=== PATIENT | male | born 1995 | race Caucasian/White ===

== ENCOUNTER 2024-10-07 08:38 | Emergency (ER) | payer SELFPAY ==
[2024-10-07 08:58] VITALS: BP 121/88; PULSE 90; RESP 16; TEMP 37.4; O2SAT 97
--- NOTE | 2024-10-07 09:01 | XR_ITS ---
Examination: Upright PA chest single view TECHNIQUE: Upright PA chest single view Exam date and time: October 07, 2024 0925 hours INDICATIONS: Coughing shortness of breath beginning 4 days ago. FINDINGS: Normal heart size No pneumonia or pulmonary edema Intact osseous structures IMPRESSION: No active disease
--- NOTE | 2024-10-07 09:03 | EDNOTE_ITS ---
Upper Respiratory Inf. RME/HPI General Chief Complaint: Flu Like Symptoms Stated Complaint: congestion,diarrhea, sob x4 days Time Seen by Provider: 10/07/24 09:00 Source: patient, RN notes reviewed and old records reviewed Arrival date/time: 10/07/24 08:38 Mode of arrival: ambulatory Limitations: no limitations RME / HPI RME / HPI Narrative: 29yom presents to the ED for 4-day history of flu-like symptoms. Multiple family members currently have similar symptoms, son recently treated for the flu. Patient c/o subjective fever, chills, body aches, headache and i ntermittent n/v/d. He reports congestion, cough and mild shortness of breath with coughing spells. No chest pain, abdominal pain, dizziness or syncope reported. Patient has taken DayQuil, NyQuil and ibuprofen with mild relief. Related Data Previous Rx's ?Medication ?Instructions ?Recorded ondansetron 4 mg disintegrating 4 mg PO Q8H PRN nausea and 08/15/20 tablet vomiting #20 tabs azithromycin 250 mg tablet See Rx Instructions PO .COMPLEX #6 01/05/21 (Zithromax) tabs acetaminophen 500 mg tablet 1,000 mg (2 x 500 mg) PO Q6H PRN 10/07/24 (Tylenol Extra Strength) fever or pain #30 tabs albuterol sulfate 90 mcg/actuation 1 inh inhalation Q4H PRN shortness 10/07/24 aerosol inhaler of breath or wheezing #18 grams benzonatate 100 mg capsule 100 mg PO Q6H PRN cough #30 caps 10/07/24 dextromethorphan-guaifenesin ER 60 1 tab PO Q12H PRN congestion/cough 10/07/24 mg-1,200 mg tab,extend #12 tabs release,12hr (Mucinex DM) ondansetron 4 mg disintegrating 4 mg PO Q6H PRN nausea and 10/07/24 tablet vomiting #10 tabs Allergies Allergy/AdvReac Type Severity Reaction Status Date / Time No Known Allergies Allergy Verified 10/07/24 08:40 Review of Systems Review of Systems Systems Reviewed: All systems reviewed, normal except as documented Constitutional Constitutional: Reports chills, Reports fever(s) and Reports headache(s) ENT Ears, Nose, Mouth, and Throat: Denies dizziness, Reports headache(s) and Reports nasal congestion Cardiovascular Cardiovascular: Denies chest pain and Reports dyspnea Respiratory Respiratory: Reports chest congestion, Reports cough and Reports dyspnea Gastrointestinal Gastrointestinal: Denies abdominal pain, Reports loose stools, Reports nausea and Reports vomiting Musculoskeletal Musculoskeletal: Reports myalgias Neurologic Neurologic: Denies dizziness and Reports headache(s) Past Medical History Surgical History OTHER SURGICAL HX: Right knee arthroscopy Social History SMOKING STATUS: Current every day smoker SUBSTANCE USE: marijuana ALCOHOL: Former Past Medical History Comments PMH COMMENT: ICH ED Exam General Limitations: Present no limitations General appearance: Present alert and in no apparent distress Head Head exam: Present atraumatic and normocephalic Eye Eye exam: Present normal appearance, PERRL and EOMI ENT ENT exam: Present normal exam, normal oropharynx, mucous membranes moist and TM's normal bilaterally Neck Neck exam: Present normal inspection and full ROM Chest Chest inspection: Present normal inspection and symmetric chest wall rise Respiratory Respiratory exam: Present normal lung sounds bilaterally and other (No wheezing, rales or rhonchi); Absent respiratory distress Cardiovascular Cardiovascular exam: Present regular rate and normal rhythm Extremities Exam Extremities exam: Present normal inspection and full ROM Neurological Exam Neurological exam: Present alert and oriented X3 Psychiatric Psychiatric exam: Present normal affect and normal mood Skin Skin exam: Present warm, dry, intact and normal color Course Quality Measures none Orders Category Date Time Status Bedside COVID-19 Antigen Test NOW Care 10/07/24 09:01 Completed Bedside Influenza A&B Antigen Test NOW Care 10/07/24 09:01 Completed CXR [XR chest 1V] Stat Exams 10/07/24 09:01 Completed Acetaminophen Tab [Tylenol ES Tab] Med 10/07/24 09:01 Discontinued 1,000 mg PO X1 ONE Ondansetron Odt [Zofran Odt] Med 10/07/24 09:01 Discontinued 4 mg PO X1 ONE Vital Signs Vital signs: Vital Signs Temperature 99.3 F 10/07/24 08:58 Pulse Rate 90 10/07/24 08:58 Respiratory Rate 16 10/07/24 08:58 Blood Pressure 121/88 H 10/07/24 08:58 Pulse Oximetry (%) 97 10/07/24 08:58 Oxygen Delivery Method Room Air 10/07/24 08:58 Upper Respiratory Infection MDM Narrative MDM Narrative:: 29yom presents to the ED for 4-day history of flu-like symptoms. Multiple family members currently have similar symptoms, son recently treated for the flu. Patient c/o subjective fever, chills, body aches, headache and intermittent n/v/d. He reports congestion, cough and mild shortness of breath with coughing spells. No chest pain, abdominal pain, dizziness or syncope reported. Patient has taken DayQuil, NyQuil and ibuprofen with mild relief. Patient is nontoxic-appearing, vitals are stable. No evidence of respiratory distress or hypoxia. Suspect viral etiology of symptoms. Encourage rest, fluid s, symptomatic treatment, fever management prn. Stable for discharge, RTED precautions given. Patient data External records reviewed:: [facility] previous records (03/17/2024 ED visit and transfer for intracranial bleed) Clinical information provided by:: patient Social determinants that could affect healthcare access:: other (specify) (Poor access to healthcare) Patient has the following chronic illnesses:: none How is presenting disease/condition affected by chronic disease/condition?: no chronic disease Evaluation data The following diagnostics were reviewed and interpreted by me:: lab results and radiology exam(s) Lab and/or radiology exams considered but not ordered:: none Interpretation Summary: CXR: no pneumonia per my read Covid/flu: negative Medications / Prescriptions Medications or Prescriptions considered but not ordered:: no antibiotics recommended at this time Medication administrations:: Medication Administration History Discontinued Medications Acetaminophen (Acetaminophen 500 Mg Tablet) 1,000 mg PO X1 ONE Stop: 10/07/24 09:02 Last Admin: 10/07/24 09:18 Dose: 1,000 mg Documented By: ED Ondansetron HCl (Ondansetron Odt 4 Mg Tabrap) 4 mg PO X1 ONE; Protocol Stop: 10/07/24 09:02 Last Admin: 10/07/24 09:18 Dose: 4 mg Documented By: ED above medications administered in ED Consultations Consultation(s) initiated? (list below): No Diagnosis Upper Respiratory Differential Diagnosis: other (URI, COVID, flu, viral illness, bronchitis, pneumonia) Most likely diagnosis given after review of the tests above:: URI, viral syndrome Admission Indicated Admission indicated?: not indicated Admission Request Was there a request for admission?: No Disposition Plan Disposition Plan: Discharge Discharge Attestation Discharge Attestation: The patient and all family members were given an opportunity to ask questions and understood the discharge instructions. Discharge instructions specifically effects, indications for sooner follow up or return to the emergency department, and the expected course of current diagnosis. Patient condition: Stable Discharge Plan Plan Patient Disposition: HOME (Self Care) Patient condition on transfer: Stable Prescriptions/Referrals Prescriptions/Med Rec: New dextromethorphan-guaifenesin [Mucinex DM] 60-1,200 mg tablet extended release 12 hr 1 tab PO Q12H PRN (Reason: congestion/cough) Qty: 12 0RF albuterol sulfate 90 mcg/actuation HFA aerosol inhaler 1 inh inhalation Q4H PRN (Reason: shortness of breath or wheezing) Qty: 18 0RF benzonatate 100 mg capsule 100 mg PO Q6H PRN (Reason: cough) Qty: 30 0RF acetaminophen [Tylenol Extra Strength] 500 mg tablet 1,000 mg PO Q6H PRN (Reason: fever or pain) Qty: 30 0RF ondansetron 4 mg tablet,disintegrating 4 mg PO Q6H PRN (Reason: nausea and vomiting) Qty: 10 0RF No Action ondansetron 4 mg tablet,disintegrating 4 mg PO Q8H PRN (Reason: nausea and vomiting) Qty: 20 0RF azithromycin [Zithromax] 250 mg tablet See Rx Instructions .ROUTE .COMPLEX Qty: 6 0RF Rx Instructions: take 500 mg today (day 1), then 250 mg for 4 days (days 2-5) Referrals: No Primary/Family,Physician [Primary Care Provider] - In 1 week Problem List Clinical Impression: Upper respiratory infection, Viral infection Patient/Caregiver Discharge Instructions Education Materials: ED URI, Viral, No Abx (Adult) Additional Instructions: Make sure to get plenty of rest, drink plenty of fluids. Typical virus take 7 to 10 days to run its course. Print Language: Azeri Stand Alone Forms: Amparo Award Info., Work/School Release, Patient Portal Info Letter PA/INSTRUCTOR DANCING Supervising Physician PA/INSTRUCTOR DANCING Supervising Physician: Cyndee
[2024-10-07] MEDS: ONDANSETRON ODT 4 MG TABRAP PO (09:18)
[2024-10-07] MEDS: ACETAMINOPHEN 500 MG TABLET 1000 MG PO (09:18)
== END 2024-10-07 10:41 | disposition home or self-care (01) ==
PROVIDERS: Emergency Provider Emergency Medicine
DX: J06.9 Acute upper respiratory infection, unspecified (principal); F17.210 Nicotine dependence, cigarettes, uncomplicated
CPT/HCPCS: 71045; 87400; 87811; 99283; Q0162; A9270

== ENCOUNTER 2025-01-20 22:49 | Emergency (ER) | payer BC, SELFPAY ==
[2025-01-20 22:49] VITALS: BMI 20.3
--- NOTE | 2025-01-20 23:07 | XR_ITS ---
EXAMINATION: Ankle, left 3 views . Technique: Ankle AP, oblique, lateral 3 views Date and time of exam: January 20, 2025 at 1110 hours INDICATIONS: Patient fell today with injury to the ankle, ankle pain. FINDINGS: Acute fracture distal tibia through the medial malleolus, intra-articular, up to 4 mm separation at the fracture site No ankle dislocation Fibula are intact IMPRESSION: Fracture through the distal medial tibia as above
[2025-01-20 23:23] VITALS: BP 114/72; PULSE 73; RESP 20; TEMP 36.6; O2SAT 95
--- NOTE | 2025-01-21 04:08 | PD.EDANKLE ---
Lower Extremity Injury RME/HPI General Chief Complaint: Ankle/Foot Injury Stated Complaint: LEFT ANKLE INJURY Time Seen by Provider: 01/20/25 23:32 Arrival date/time: 01/20/25 22:49 29M with no significant PMH presents to ED with L ankle pain after trip and fall. Patient denies hitting his head. Limitations: no limitations Related Data Previous Rx's ?Medication ?Instructions ?Recorded ondansetron 4 mg disintegrating 4 mg PO Q8H PRN nausea and 08/15/20 tablet vomiting #20 tabs azithromycin 250 mg tablet See Rx Instructions PO .COMPLEX #6 01/05/21 (Zithromax) tabs acetaminophen 500 mg tablet 1,000 mg (2 x 500 mg) PO Q6H PRN 10/07/24 (Tylenol Extra Strength) fever or pain #30 tabs albuterol sulfate 90 mcg/actuation 1 inh inhalation Q4H PRN shortness 10/07/24 aerosol inhaler of breath or wheezing #18 grams benzonatate 100 mg capsule 100 mg PO Q6H PRN cough #30 caps 10/07/24 dextromethorphan-guaifenesin ER 60 1 tab PO Q12H PRN congestion/cough 10/07/24 mg-1,200 mg tab,extend #12 tabs release,12hr (Mucinex DM) ondansetron 4 mg disintegrating 4 mg PO Q6H PRN nausea and 10/07/24 tablet vomiting #10 tabs Allergies Allergy/AdvReac Type Severity Reaction Status Date / Time No Known Allergies Allergy Verified 10/07/24 08:40 Review of Systems Review of Systems Systems Reviewed: All systems reviewed, normal except as documented Constitutional Constitutional: Reports system reviewed and no additional complaints, except as documented, Denies fever(s) and Denies headache(s) ENT Ears, Nose, Mouth, and Throat: Denies disequilibrium and Denies headache(s) Cardiovascular Cardiovascular: Reports system reviewed and no additional complaints, except as documented, Denies chest pain and Denies dyspnea Respiratory Respiratory: Reports system reviewed and no additional complaints, except as documented, Denies cough and Denies dyspnea Gastrointestinal Gastrointestinal: Reports system reviewed and no additional complaints, except as documented, Denies abdominal pain, Denies nausea and Denies vomiting Musculoskeletal Musculoskeletal: Reports as per HPI, Reports arthralgias and Reports joint swelling Neurologic Neurologic: Reports system reviewed and no additional complaints, except as documented, Denies confusion, Denies disequilibrium and Denies headache(s) Psychiatric Psychiatric: Denies confusion Past Medical History Past Medical History CARDIAC: Negative Congestive Heart Failure RESPIRATORY: Negative Chronic Obstructive Pulmonary Disease (COPD) GENITOURINARY: Negative Renal Disease ENDOCRINE: Negative Diabetes Mellitus Type 1 or Diabetes Mellitus Type 2 Surgical History SURGICAL: Positive Joint Replacement Social History SMOKING STATUS: Current every day smoker SUBSTANCE USE: marijuana ED Exam General Limitations: Present no limitations General appearance: Present alert and in no apparent distress Head Head exam: Present atraumatic Eye Eye exam: Present normal appearance, PERRL and EOMI ENT ENT exam: Present normal exam, normal oropharynx and mucous membranes moist Neck Neck exam: Present normal inspection, full ROM and trachea midline Chest Chest inspection: Present normal inspection and symmetric chest wall rise Respiratory Respiratory exam: Present normal lung sounds bilaterally Cardiovascular Cardiovascular exam: Present regular rate, normal rhythm and normal heart sounds Abdominal Exam Abdominal exam: Present soft and normal bowel sounds Expanded Lower Extremity Exam Ankle exam: Present tenderness (L) and swelling Back Exam Back exam: Present normal inspection and full ROM Neurological Exam Neurological exam: Present alert, oriented X3 and CN II-XII intact Psychiatric Psychiatric exam: Present normal affect and normal mood Skin Skin exam: Present warm, dry, intact and normal color Course Quality Measures none Orders Category Date Time Status Crutches .NOW Care 01/21/25 00:02 Active Splint / Immobilizer STAT Care 01/21/25 00:02 Active XR ankle comp LT min 3V Stat Exams 01/20/25 23:07 Completed Vital Signs Vital signs: Vital Signs Temperature 97.9 F 01/20/25 23:23 Pulse Rate 73 01/20/25 23:23 Respiratory Rate 20 01/20/25 23:23 Blood Pressure 114/72 01/20/25 23:23 Pulse Oximetry (%) 95 01/20/25 23:23 Oxygen Delivery Method Room Air 01/20/25 23:23 O2 at 95% on RA and WNLs Extremity Injury, Lower MDM Narrative MDM Narrative:: 29M with no significant PMH presents to ED with L ankle pain after trip and fall. Patient denies hitting his head. Physical exam reveals L ankle tenderness and swelling. Mildly reduced ROM. Patient is afebrile, calm, and alert. XR reveals L ankle fx. Given splint, crutches, and ortho referral w/ Dr. Garcia. Patient data External records reviewed:: [facility] previous records Clinical information provided by:: patient Social determinants that could affect healthcare access:: none Patient has the following chronic illnesses:: none How is presenting disease/condition affected by chronic disease/condition?: no chronic disease Evaluation data The following diagnostics were reviewed and interpreted by me:: radiology exam(s) Lab and/or radiology exams considered but not ordered:: ordered Interpretation Summary: above Medications / Prescriptions Medications or Prescriptions considered but not ordered:: not ordered Medication administrations:: n/a Consultations Consultation(s) initiated? (list below): No Diagnosis Extremity Injury, Lower Differential Diagnosis: ankle sprain and strain, acute internal derangement of knee, fracture of femur, fracture of hip, fracture of toe and ankle fracture Most likely diagnosis given after review of the tests above:: ankle fx Admission Indicated Admission indicated?: not indicated Admission Request Was there a request for admission?: No Disposition Plan Disposition Plan: Discharge Discharge Attestation Discharge Attestation: The patient and all family members were given an opportunity to ask questions and understood the discharge instructions. Discharge instructions specifically effects, indications for sooner follow up or return to the emergency department, and the expected course of current diagnosis. Patient condition: Stable Discharge Plan Plan Patient Disposition: HOME (Self Care) Disposition Comment: Stable Prescriptions/Referrals Prescriptions/Med Rec: No Action ondansetron 4 mg tablet,disintegrating 4 mg PO Q8H PRN (Reason: nausea and vomiting) Qty: 20 0RF azithromycin [Zithromax] 250 mg tablet See Rx Instructions .ROUTE .COMPLEX Qty: 6 0RF Rx Instructions: take 500 mg today (day 1), then 250 mg for 4 days (days 2-5) dextromethorphan-guaifenesin [Mucinex DM] 60-1,200 mg tablet extended release 12 hr 1 tab PO Q12H PRN (Reason: congestion/cough) Qty: 12 0RF albuterol sulfate 90 mcg/actuation HFA aerosol inhaler 1 inh inhalation Q4H PRN (Reason: shortness of breath or wheezing) Qty: 18 0RF benzonatate 100 mg capsule 100 mg PO Q6H PRN (Reason: cough) Qty: 30 0RF acetaminophen [Tylenol Extra Strength] 500 mg tablet 1,000 mg PO Q6H PRN (Reason: fever or pain) Qty: 30 0RF ondansetron 4 mg tablet,disintegrating 4 mg PO Q6H PRN (Reason: nausea and vomiting) Qty: 10 0RF Referrals: Acosta Zamora MD [Physician] - 01/23/25 3:00 pm Problem List Clinical Impression: Ankle fracture Patient/Caregiver Discharge Instructions Education Materials: ED Fracture, Lower Extremity Additional Instructions: Please follow-up with PCP within 24-48 hours and return immediately if symptoms worsen. Please go to scheduled ortho appointment with Dr. Zamora on Thursday at 3 PM. Make sure to bring disk. Print Language: Greek Stand Alone Forms: Amparo Award Info., Work/School Release, Patient Portal Info Letter PA/PELLET PREPARATION OPERATOR Supervising Physician PA/ZAHIRA Supervising Physician: Dr. Bagley
== END 2025-01-21 01:39 | disposition home or self-care (01) ==
LOC: SERX 01-21 04:41
PROVIDERS: Emergency Provider Emergency Medicine; PCP Family Medicine
DX: S82.52XA Displaced fracture of medial malleolus of left tibia, initial encounter for closed fracture (principal); W01.0XXA Fall on same level from slipping, tripping and stumbling without subsequent striking against object, initial encounter
CPT/HCPCS: 29515; 73610; 99283